=== PATIENT | male | born 1985 | race Caucasian/White ===

== ENCOUNTER 2017-12-05 05:58 | Day surgery (SDC) | payer OTHER ==
[2017-11-28 09:34] LABS: APPEARANCE,URINE CLEAR; BILIRUBIN,URINE NEGATIVE (NEGATIVE); COLOR,URINE YELLOW; GLUCOSE, URINE NEGATIVE (NEGATIVE); KETONES,URINE NEGATIVE (NEGATIVE); LEUKOCYTE ESTERASE,URINE NEGATIVE (NEGATIVE); NITRITE,URINE NEGATIVE (NEGATIVE); PROTEIN,URINE NEGATIVE (NEGATIVE); URINE SPECIFIC GRAVITY 1.009; UROBILINOGEN,URINE NEGATIVE mg/dL (<2.0)
[2017-11-28 09:35] LABS: ABSOLUTE BASOPHILS # (AUTO) 0.1 10^3/uL (0.0-0.2); ABSOLUTE EOSINOPHILS # (AUTO) 0.1 10^3/uL (0.0-0.6); ABSOLUTE LYMPHOCYTES (AUTO) 2.5 10^3/uL (0.5-4.7); ABSOLUTE MONOCYTES (AUTO) 0.8 10^3/uL (0.1-1.4); ABSOLUTE NEUT (AUTO) 4.3 10^3/uL (1.7-8.2); BASOPHILS % (AUTO) 0.8 % (0-2); EOSINOPHILS % (AUTO) 1.5 % (0-6); HEMATOCRIT 46.3 % (37.9-51.0); HEMOGLOBIN 16.1 g/dL (13.5-17.0); LYMPHOCYTES % (AUTO) 31.4 % (13-45); MEAN CORPUSCULAR HEMOGLOBIN 30.9 pg (27.0-33.4); MEAN CORPUSCULAR HGB CONC 34.8 g/dL (32.0-36.0); MEAN CORPUSCULAR VOLUME 89 fl (80-97); MONOCYTES % (AUTO) 10.8 % (3-13); PLATELET COUNT 224 10^3/uL (150-450); RED BLOOD COUNT 5.19 10^6/uL (4.35-5.55); RED CELL DISTRIBUTION WIDTH 12.8 % (11.5-14.0); SEGMENTED NEUTROPHILS % (AUTO) 55.5 % (42-78); TOTAL CELLS COUNTED % (AUTO) 100 %; WHITE BLOOD COUNT 7.8 10^3/uL (4.0-10.5)
[2017-11-28 09:56] LABS: ANION GAP 14 (5-19); BLOOD UREA NITROGEN 11 mg/dL (7-20); CALCIUM 9.9 mg/dL (8.4-10.2); CARBON DIOXIDE 28 mmol/L (22-30); CHLORIDE 105 mmol/L (98-107); GLUCOSE 89 mg/dL (75-110); POTASSIUM 4.3 mmol/L (3.6-5.0); SODIUM 146.5 mmol/L (137-145)
--- NOTE | 2017-11-28 12:33 | EKG REPORT ---
SEVERITY:- NORMAL ECG - SINUS RHYTHM : Confirmed by: Glynn Andrews MD 28-Nov-2017 12:32:11
[~2017-12-05 05:58] MED LIST: CEFAZOLIN SODIUM 2 GM in DEXTROSE 5%-WATER 100 ML IV SCH; CLINDAMYCIN 600 MG/D5W RTU 600 MG/50 ML RTUPB IV SCH; LACTATED RINGERS 1000 ML IV PRN; LIDOCAINE 0.5% INJ-PF (5 MG/ML) 50 ML SDV SUBCUT PRN
[2017-12-05] MEDS ORDERED: BUPIVACAINE HCL 0.5 % INJ/PF 30 ML SDV ONE (06:10)
[2017-12-05] MEDS ORDERED: FENTANYL CITRATE INJ/PF 100 MCG/2 ML AMPUL ONE ×2 (07:13→07:14)
[2017-12-05] MEDS ORDERED: MIDAZOLAM 2 MG/2 ML INJ ONE (07:14)
[2017-12-05] MEDS ORDERED: PROPOFOL INJ 200 MG/20 ML VIAL IV ONE (07:14)
[2017-12-05] MEDS ORDERED: ONDANSETRON HCL INJ/PF 4 MG/2 ML SDV ONE (07:14)
[2017-12-05] MEDS ORDERED: FENTANYL CITRATE INJ/PF 100 MCG/2 ML AMPUL IV PRN ×3 (08:06)
[2017-12-05] MEDS ORDERED: MEPERIDINE HCL/PF INJ 25 MG/1 ML DISP.SYRIN IV PRN (08:06)
[2017-12-05] MEDS ORDERED: DIPHENHYDRAMINE HCL 50 MG/ML VIAL IV PRN (08:06)
[2017-12-05] MEDS ORDERED: ONDANSETRON HCL INJ/PF 4 MG/2 ML SDV IV PRN ×2 (08:06→08:40)
[2017-12-05] MEDS ORDERED: LIDOCAINE 1% INJ-PF (10 MG/ML) 30 ML SDV ONE (08:07)
[2017-12-05] MEDS ORDERED: RINGERS SOLUTION,LACTATED 1,000 ML IV PRN (08:40)
[2017-12-05] MEDS ORDERED: OXYCODONE-ACETAMINOPHEN 5-325 MG TABLET PO PRN (08:40)
--- NOTE | 2017-12-05 08:42 | Discharge Summary ---
Discharge Summary (SDC) - Discharge Final Diagnosis: Left Wrist Ganglion Cyst Date of Surgery: 12/05/17 Discharge Date: 12/05/17 Condition: Good Treatment or Instructions: Schedule Follow Up w/ Dr. Main Gary @ [facility] to be seen in 10-14 days or as scheduled [place]: [place]: [place]: May remove dressing on postop day #3, keep incision covered and dry. Ice and elevate May begin finger range of motion attempting to make full fist. Stool softener of choice when on pain medication. Prescriptions: Hydrocodone/Acetaminophen [[place] 5-325 mg Tablet] 1 tab PO Q6 PRN #15 tablet PRN Reason: Discharge Diet: As Tolerated Respiratory Treatments at Home: Deep Breathing/Coughing Discharge Activity: No Lifting Over 10 Pounds, No Lifting/Push/Pulling Report the Following to Your Physician Immediately: Fever over 101 Degrees, Unusual Bleeding, Redness, Swelling, Warmth, Increased Soreness
--- NOTE | 2017-12-05 08:45 | Operative Report ---
Operative Report DATE OF SURGERY: 12/05/17 PREOPERATIVE DIAGNOSIS: Ganglion cyst left wrist POSTOPERATIVE DIAGNOSIS: Same OPERATION: Excision ganglion cyst left wrist SURGEON: SUSANA CROCKER ANESTHESIA: LMAC COMPLICATIONS: None ESTIMATED BLOOD LOSS: Minimal PROCEDURE: Indication for above procedure: 32-year-old male who developed a ganglion cyst of his left wrist. Attempting conservative measures but after 2 years continued to have recurrence and discomfort. We discussed treatment options including operative versus nonoperative intervention. After discussing these options decision was made to proceed with operative treatment. Procedure In Detail: Patient was seen and evaluated in the preoperative holding area. The LEFT upper extremity was initialized and marked. Patient received Cleocin IV for bacterial prophylaxis. Patient was taken back to the operative room where transferred to the operative table and placed under general anesthesia. Once they were adequately anesthetized a nonsterile tourniquet was placed on the upper extremity. A surgical team debriefing was performed ensuring all instrumentation was available, the surgical procedure was discussed with possible concerns reviewed. Local block was performed utilizing 6 cc of 1% lidocaine without epinephrine the upper extremity was prepped with chlorhexidine and alcohol and draped in a sterile fashion. A timeout was done identifying correct patient, procedure and extremity everyone in attendance agree with this and verbalized no concerns. The extremity was exsanguinated the tourniquet was inflated to 250 mmHg. Longitudinal skin incision was made overlying the marked area of the ganglion cyst. Blunt dissection was performed. Any peripheral veins were coagulated with bipolar cautery. Branch of the dorsal ulnar sensory nerve was identified and retracted. The fifth dorsal compartment was opened distally and the EDM tendon retracted in a ulnar direction. Remanent of the ganglion cyst was identified at this level. This was tracked to the capsule overlying the LT interval. A capsulotomy was made and the wall of the ganglion cyst and root was excised. The area where the root was emanating from was then coagulated with bipolar cautery. No remaining portion of the ganglion cyst was identified. Ganglion cyst was sent to pathology. The wound was then copiously irrigated with normal saline. Skin was closed with a running subcuticular 4-0 Monocryl reinforced with Dermabond and Steri- Strips. A soft dressing was placed. Tourniquet was deflated patient good peripheral perfusion full range of motion. Sponge counts, instrument counts, needle counts counts were correct. Patient was then awoken from anesthesia. Transferred from the operating room table to the operating room stretcher. There was no intraoperative complications patient tolerated procedure well stable to PACU. Postoperative plan: Patient will follow-up the office in 2 weeks for wound check and discuss pathology results.
[2017-12-05] MEDS: FENTANYL CITRATE INJ/PF 100 MCG/2 ML AMPUL ONE ×2 (08:48→08:53)
[2017-12-05 10:49] VITALS: BP 112/79
== END 2017-12-05 10:25 | disposition home or self-care (01) ==
LOC: OROUT 05:58
PROVIDERS: ATTEND Orthopaedic Surgery
DX: M67.432 Ganglion, left wrist (principal); I10 Essential (primary) hypertension; F17.210 Nicotine dependence, cigarettes, uncomplicated; Z88.0 Allergy status to penicillin; Z79.899 Other long term (current) drug therapy
CPT/HCPCS: 93005; 36415; 85025; 80048; 81001; 88304 ×2; 93010; 25111; J2250; J3490 ×2; J3010; J2405; J2704; 1810